=== PATIENT | female | born 1975 | race Caucasian/White ===

== ENCOUNTER → 2016-11-11 | Outpatient (CLI) | payer BC | LOC: MC.RAD 10:54 | DX: Z12.31 Encounter for screening mammogram for malignant neoplasm of breast (principal) ==

== ENCOUNTER → 2018-11-15 | Outpatient (CLI) | payer BC | LOC: MC.RAD 07:36 | DX: Z12.31 Encounter for screening mammogram for malignant neoplasm of breast (principal) ==

== ENCOUNTER → 2021-03-12 | Outpatient (CLI) | payer BC | LOC: MC.RAD 10:30 | DX: Z12.31 Encounter for screening mammogram for malignant neoplasm of breast (principal) ==

== ENCOUNTER 2021-12-06 06:58 | Day surgery (SDC) | payer BC ==
[~2021-12-06] VITALS: Ht 167.6 cm; Wt 56.3 kg
[2021-12-06 09:20] VITALS: BP 103/70; PULSE 83; TEMP 98
[2021-12-06 09:35] VITALS: BP 95/63; PULSE 77
[2021-12-06 09:50] VITALS: BP 118/77; PULSE 69
[2021-12-06 16:40] VITALS: BP 135/89; PULSE 102; TEMP 98.8
== END 2021-12-06 10:05 | disposition home or self-care (01) ==
LOC: SDCO 06:58
DX: K64.0 First degree hemorrhoids (principal)
CPT/HCPCS: J2704; J7120

== ENCOUNTER → 2023-12-02 | Outpatient (CLI) | payer BC | LOC: MC.RAD 07:16 | DX: Z12.31 Encounter for screening mammogram for malignant neoplasm of breast (principal) ==